=== PATIENT | female | born 1990 | race Caucasian/White ===

== ENCOUNTER 2016-12-01 22:06 | Inpatient (IN) | payer OTHER ==
[~2016-12-01] VITALS: Ht 168 cm; Wt 96.3 kg
[2016-12-01 18:03] VITALS: BP 137/66
[2016-12-01 18:35] LABS: HEMATOCRIT 34.4 % (37.0-47.0); HEMOGLOBIN 11.1 g/dl (12.0-16.0); MEAN CELL VOLUME 82.1 fl (81.0-99.0); MEAN CORPUSCULAR HGB 26.5 pg (27.0-31.0); MEAN CORPUSCULAR HGB CONC 32.3 g/dl (33.0-37.0); MEAN PLATELET VOLUME 10.8 fl (9.6-12.3); PLATELET COUNT AUTOMATED 338 10*3/uL (130-400); RED BLOOD COUNT 4.19 10*6/uL (4.10-5.10); RED CELL DISTRI WIDTH 15.5 % (0-14.5)
[2016-12-01 18:49] LABS: ALBUMIN 1.8 gm/dl (3.1-4.5); BILIRUBIN, TOTAL 0.4 mg/dl (0.2-1.0); POTASSIUM 2.9 mmol/L (3.5-5.1); TOTAL PROTEIN 6.7 gm/dL (6.4-8.2)
[2016-12-01 18:59] LABS: ATYPICAL LYMPHS 1 % (0-0); LYMPHOCYTE # 2.6 10*3/uL (1.3-4.4); METAMYELOCYTES 3 % (0-0); MONOCYTE # 0.4 10*3/uL (0.1-1.0); MYELOCYTES 5 % (0-0); NEUTROPHILS 69 % (47-73); PLATELET SUFFICIENCY NORMAL (NORMAL); POLYCHROMASIA SLIGHT; TOTAL CELLS COUNTED 100 #CELLS
[~2016-12-01 22:06] MED LIST: ALBUTEROL0.09 MG/A2 IH; AMOXIL500 MG PO; ANAPROX DS550 MG PO; ANAPROX-DS550 MG PO; BIAXIN500 MG PO; CLARITIN10 MG PO; DAYPRO600 M1 PO; FLEXERIL10 MG PO; HCTZ/TRIAMTEREN1 TA3 PO; LEVAQUIN750 M1 PO; MACROBID100 M1 PO; MOTRIN600 MG PO; MOTRIN800 MG PO; NO MEDS; PERCOCET 325 MG1 TA2 PO; PREDNISONE10 MG PO; PREDNISONE20 MG PO; PYRIDIUM200 MG PO; ROBITUSSIN DM 105 ML PO; SUBOXONE 8 MG-21 TA1 PO; SUBUTEX8 M1 SL; TRAMADOL HCL50 MG PO; VICODIN ES 7501 TAB PO; ZITHROMAX Z PA250 MG PO
[2016-12-01 22:14] VITALS: BP 152/84
[2016-12-01 22:49] VITALS: BP 146/76
[2016-12-02 06:14] LABS: HEMATOCRIT 32.9 % (37.0-47.0); HEMOGLOBIN 10.6 g/dl (12.0-16.0); MEAN CELL VOLUME 82.3 fl (81.0-99.0); MEAN CORPUSCULAR HGB 26.5 pg (27.0-31.0); MEAN CORPUSCULAR HGB CONC 32.2 g/dl (33.0-37.0); MEAN PLATELET VOLUME 10.9 fl (9.6-12.3); PLATELET COUNT AUTOMATED 320 10*3/uL (130-400); RED CELL DISTRI WIDTH 15.5 % (0-14.5); WHITE BLOOD COUNT 9.2 10*3/uL (4.8-10.8)
[2016-12-02 06:41] LABS: BUN 29 mg/dl (7-24); CARBON DIOXIDE 23 mmol/L (21-32); CHLORIDE 112 mmol/L (98-107); GLUCOSE 116 mg/dL (65-99); MAGNESIUM 1.6 mg/dL (1.5-2.1); POTASSIUM 3.8 mmol/L (3.5-5.1); SODIUM 142 mmol/L (136-145)
[2016-12-02 06:42] LABS: INTERNATIONAL NORM RATIO 1.1 (2.0-3.5); PROTHROMBIN TIME 11.3 SECONDS (9.0-12.4)
[2016-12-02 06:48] LABS: LYMPHOCYTE # 1.3 10*3/uL (1.3-4.4); METAMYELOCYTES 4 % (0-0); MONOCYTE # 0.4 10*3/uL (0.1-1.0); MYELOCYTES 1 % (0-0); NEUTROPHIL # 7.1 10*3/uL (2.3-7.9); NEUTROPHILS 77 % (47-73); PLATELET SUFFICIENCY NORMAL (NORMAL); TOTAL CELLS COUNTED 100 #CELLS; TOXIC GRANULATION SLIGHT
[2016-12-02 06:54] LABS: CHOLESTEROL 170 mg/dL (<200); EST GLOM FILT AFRICAN AMERICAN > 60 ml/min; FREE T4 1.03 ng/dl (0.76-1.46); HDL CHOLESTEROL 14 mg/dl (40-60); LDL CHOLESTEROL 117 mg/dL (9-159); PHOSPHOROUS 4.5 mg/dL (2.5-4.9); THYROID STIM HORMONE (HS) 0.527 uIU/ml (0.358-4.75); TRIGLYCERIDES 195 mg/dl (<150); VLDL CHOLESTEROL 39 mg/dL (6-40)
[2016-12-02 08:00] VITALS: BP 146/78
[2016-12-02] MEDS ORDERED: BUPRENORPHINE HY8 MG SL (09:23)
[2016-12-02 12:00] VITALS: BP 130/60
[2016-12-02 16:00] VITALS: BP 116/66
[2016-12-02 20:00] VITALS: BP 134/79
[2016-12-03] VITALS: BP 118/64
[2016-12-03 08:00] VITALS: BP 132/66
[2016-12-03 11:15] LABS: FOLIC ACID 19.49 ng/mL (>5.38); VITAMIN D, 25-HYDROXY 21.3 ng/mL (30-100)
[2016-12-03 12:00] VITALS: BP 125/62
[2016-12-03] MEDS ORDERED: DOXYCYCLINE100 M3 PO (13:43)
[2016-12-03] MEDS ORDERED: PREDNISONE10 MG PO (13:43)
[2016-12-03 16:00] VITALS: BP 138/73
[2016-12-05 16:12] LABS: ORGANISM ID Not indicated. (.); SPECIMEN SOURCE Urine (.); STREPTOCOCCUS PNEUMONIAE AG Positive (Negative)
== END 2016-12-03 19:15 | disposition home or self-care (01) | DRG 871 ==
LOC: ED 22:06 → 5E 22:31 → EDHOLD 22:31 → 5E 22:47
PROVIDERS: Internal Medicine; Nurse Practitioner Family
DX: A41.9 Sepsis, unspecified organism (principal); J18.1 Lobar pneumonia, unspecified organism; N17.0 Acute kidney failure with tubular necrosis; E43 Unspecified severe protein-calorie malnutrition; I10 Essential (primary) hypertension; R65.20 Severe sepsis without septic shock; E87.6 Hypokalemia; F17.200 Nicotine dependence, unspecified, uncomplicated; E66.9 Obesity, unspecified; Z79.899 Other long term (current) drug therapy; Z68.34 Body mass index [BMI] 34.0-34.9, adult; Z71.6 Tobacco abuse counseling